=== PATIENT | female | born 1965 | race Caucasian/White ===

== ENCOUNTER → 2020-10-02 | Outpatient (CLI) | payer OTHER ==
--- NOTE | 2020-10-02 10:40 | NUR ---
PATIENT UNDERWENT ULTRASOUND GUIDED THYROID BIOPSY OF RIGHT LOBE THYROID NODULE UNDER LOCAL AESTHETIC PER DR Nanette LIMON [place]. PATIENT STATES OF FEELING ANXIOUS - MUCH REASSURANCE AND SUPPORT GIVEN. PATHOLOGY PRESENT DURING PROCEDURE. PATIENT TOLERATED PROCEDURE WELL. BIOPSIES OBTAINED AND TAKEN TO PATHOLOGY DEPT PER PATHOLOGY STAFF. BANDAID APPLIED TO BIOPSY SITE - NO BLEEDING OR HEMATOMA NOTED. PATIENT GIVEN AFTER CARE THYROID BIOPSY INSTRUCTIONS - DIRECTOR CUSTOM REVIWED WITH PATIENT - VERBALIZED UNDERSTANDING.
== END | disposition home or self-care (01) ==
LOC: US 09:50
PROVIDERS: ATTEND Internal Medicine
DX: E04.1 Nontoxic single thyroid nodule (principal); Z88.0 Allergy status to penicillin; Z98.890 Other specified postprocedural states; Z79.899 Other long term (current) drug therapy
CPT/HCPCS: 10005; 10022; 76942

== ENCOUNTER → 2020-11-05 | Outpatient (CLI) | payer OTHER | END | disposition home or self-care (01) | LOC: LAB 17:00 | PROVIDERS: ATTEND Physician Assistant | DX: U07.1 COVID-19 (principal) | CPT/HCPCS: C9803; U0003 ==